=== PATIENT | male | born 1955 | race Caucasian/White ===

== ENCOUNTER → 2023-03-30 09:41 | Outpatient (REF) | payer MEDICARE, OTHER, SELFPAY ==
[2023-03-30 11:55] LABS: PT 27.3 Sec (11.4-14.6)
== END ==
LOC: HWLAB 09:41
PROVIDERS: ATTENDING PHYSICIAN Internal Medicine Cardiovascular Disease; FAMILY PHYSICIAN Family Medicine
DX: I48.21 Permanent atrial fibrillation (principal)
CPT/HCPCS: 85610

== ENCOUNTER → 2023-04-06 09:54 | Outpatient (REF) | payer MEDICARE, OTHER, SELFPAY ==
[2023-04-06 11:43] LABS: INR 2.81
== END ==
LOC: HWLAB 09:54
PROVIDERS: ATTENDING PHYSICIAN Internal Medicine Cardiovascular Disease; FAMILY PHYSICIAN Family Medicine
DX: I48.21 Permanent atrial fibrillation (principal)
CPT/HCPCS: 36415; 85610

== ENCOUNTER → 2023-04-13 10:00 | Outpatient (REF) | payer MEDICARE, OTHER, SELFPAY ==
[2023-04-13 13:05] LABS: INR 2.95; PT 31.2 Sec (11.4-14.6)
== END ==
LOC: HWLAB 10:00
PROVIDERS: ATTENDING PHYSICIAN Internal Medicine Cardiovascular Disease; FAMILY PHYSICIAN Family Medicine
DX: I48.21 Permanent atrial fibrillation (principal)
CPT/HCPCS: 36415; 85610

== ENCOUNTER → 2023-05-11 10:02 | Outpatient (REF) | payer MEDICARE, OTHER, SELFPAY ==
[2023-05-11 13:03] LABS: INR 3.98; PT 39.5 Sec (11.4-14.6)
== END ==
LOC: HWLAB 10:02
PROVIDERS: ATTENDING PHYSICIAN Internal Medicine Cardiovascular Disease; FAMILY PHYSICIAN Family Medicine
DX: I48.21 Permanent atrial fibrillation (principal)
CPT/HCPCS: 36415; 85610

== ENCOUNTER → 2023-05-18 09:02 | Outpatient (REF) | payer MEDICARE, OTHER, SELFPAY ==
[2023-05-18 12:30] LABS: INR 3.02; PT 31.7 Sec (11.4-14.6)
== END ==
LOC: HWLAB 09:02
PROVIDERS: ATTENDING PHYSICIAN Internal Medicine Cardiovascular Disease; FAMILY PHYSICIAN Family Medicine
DX: I48.21 Permanent atrial fibrillation (principal)
CPT/HCPCS: 36415; 85610

== ENCOUNTER → 2023-05-25 08:54 | Outpatient (REF) | payer MEDICARE, OTHER, SELFPAY ==
[2023-05-25 12:28] LABS: INR 2.24; PT 25.1 Sec (11.4-14.6)
== END ==
LOC: HWLAB 08:54
PROVIDERS: ATTENDING PHYSICIAN Internal Medicine Cardiovascular Disease; FAMILY PHYSICIAN Family Medicine
DX: I48.21 Permanent atrial fibrillation (principal)
CPT/HCPCS: 85610

== ENCOUNTER → 2023-06-01 10:16 | Outpatient (REF) | payer MEDICARE, OTHER, SELFPAY ==
[2023-06-01 12:49] LABS: PT 25.5 Sec (11.4-14.6)
== END ==
LOC: HWLAB 10:16
PROVIDERS: ATTENDING PHYSICIAN Internal Medicine Cardiovascular Disease; FAMILY PHYSICIAN Family Medicine
DX: I48.21 Permanent atrial fibrillation (principal)
CPT/HCPCS: 36415; 85610

== ENCOUNTER → 2023-06-08 09:33 | Outpatient (REF) | payer MEDICARE, OTHER, SELFPAY ==
[2023-06-08 13:04] LABS: INR 2.34; PT 25.9 Sec (11.4-14.6)
== END ==
LOC: HWLAB 09:33
PROVIDERS: ATTENDING PHYSICIAN Internal Medicine Cardiovascular Disease; FAMILY PHYSICIAN Family Medicine
DX: I48.21 Permanent atrial fibrillation (principal)
CPT/HCPCS: 36415; 85610

== ENCOUNTER → 2023-07-06 10:10 | Outpatient (REF) | payer MEDICARE, OTHER, SELFPAY ==
[2023-07-06 13:08] LABS: INR 2.56; PT 27.9 Sec (11.4-14.6)
== END ==
LOC: HWLAB 10:10
PROVIDERS: ATTENDING PHYSICIAN Internal Medicine Cardiovascular Disease; FAMILY PHYSICIAN Family Medicine
DX: I48.21 Permanent atrial fibrillation (principal)
CPT/HCPCS: 36415; 85610

== ENCOUNTER → 2023-08-03 09:15 | Outpatient (REF) | payer MEDICARE, OTHER, SELFPAY ==
[2023-08-03 12:37] LABS: % Basophils 0.9 % (0-2); % Eosinophils 4.2 % (0-6); % Immature Granulocytes 0.4 % (0-0.5); % Lymphocytes 19.2 % (20.5-51.1); % Monocytes 8.3 % (1.7-9.3); Absolute Basophils 0.1 10^3/uL (0-0.2); Absolute Eosinophils 0.2 10^3/uL (0-0.7); Absolute Lymphocytes 1.1 10^3/uL (1.2-3.4); Absolute Monocytes 0.5 10^3/uL (0.1-0.6); Absolute Neutrophils 3.8 10^3/uL (1.4-6.5); Hematocrit 38.6 % (39.0-52.0); Hemoglobin 13.3 g/dL (13.0-18.0); Mean Corp Hgb Conc. 34.5 g/dL (33.0-37.0); Mean Platelet Volume 10.6 fL (7.4-10.4); Nucleated Red Blood Cells % 0 % (-); Platelet Count 252 10^3/uL (130-400); Red Blood Cell Count 4.29 10^6/uL (4.70-6.10); Red Cell Dist. Width 13.5 % (11.5-14.5); White Blood Cell Count 5.7 10^3/uL (4.8-10.8)
[2023-08-03 12:44] LABS: ALT (SGPT) 17 U/L (0-50); AST (SGOT) 22 U/L (17-59); Albumin 4.3 g/dl (3.5-5.0); Blood Urea Nitrogen 27 mg/dl (9-20); Calcium 9.7 mg/dl (8.4-10.2); Carbon Dioxide 22 mmol/L (22-30); Chloride 102 mmol/L (98-107); Glucose 134 mg/dl (70-99); HDL Cholesterol 48 mg/dl; LDL Cholesterol, Calculated 71 mg/dl; Sodium 134 mmol/L (135-145); Total Bilirubin 0.6 mg/dl (0.2-1.3); Total Cholesterol 141 mg/dl (50-199); Total Protein 6.8 g/dl (6.3-8.2); Triglyceride 111 mg/dl (10-149); Very Low Density Lipoprotein 22 mg/dl (0-30); eGFR > 60.00
[2023-08-03 12:59] LABS: INR 2.75; Microalbumin/creatinine Ratio 11.1 mg/g
[2023-08-03 13:08] LABS: Alkaline Phosphatase 39 U/L (38-126)
[2023-08-03 13:16] LABS: PSA, Total - Screen 0.73 ng/ml (0.0-4.0)
[2023-08-04 13:14] LABS: Glycohemoglobin (HgbA1c) 6.4 % (4.0-5.6)
== END ==
LOC: HWLAB 09:15
PROVIDERS: ATTENDING PHYSICIAN Internal Medicine Cardiovascular Disease; FAMILY PHYSICIAN Family Medicine
DX: I48.21 Permanent atrial fibrillation (principal); I10 Essential (primary) hypertension; E11.9 Type 2 diabetes mellitus without complications; E78.6 Lipoprotein deficiency; E78.2 Mixed hyperlipidemia; Z12.5 Encounter for screening for malignant neoplasm of prostate
CPT/HCPCS: 36415; 80053; 80061; 82043; 82570; 83036; 85025; 85610; G0103

== ENCOUNTER → 2023-08-04 09:31 | Outpatient (REF) | payer MEDICARE, OTHER, SELFPAY ==
[2023-08-04 13:14] LABS: Glycohemoglobin (HgbA1c) 6.5 % (4.0-5.6)
[2023-08-04 13:32] LABS: Potassium 5.7 mmol/L (3.5-5.1)
== END ==
LOC: HWLAB 09:31
PROVIDERS: ATTENDING PHYSICIAN Internal Medicine Cardiovascular Disease; FAMILY PHYSICIAN Family Medicine
DX: E11.9 Type 2 diabetes mellitus without complications (principal); E11.59 Type 2 diabetes mellitus with other circulatory complications; E87.5 Hyperkalemia
CPT/HCPCS: 36415; 83036; 84132

== ENCOUNTER → 2023-08-16 09:37 | Outpatient (REF) | payer MEDICARE, OTHER, SELFPAY ==
[2023-08-16 11:41] LABS: Blood Urea Nitrogen 18 mg/dl (9-20); Calcium 9.6 mg/dl (8.4-10.2); Carbon Dioxide 23 mmol/L (22-30); Chloride 105 mmol/L (98-107); Glucose 139 mg/dl (70-99); Potassium 5.5 mmol/L (3.5-5.1); Sodium 139 mmol/L (135-145); eGFR > 60.00
== END ==
LOC: HWLAB 09:37
PROVIDERS: ATTENDING PHYSICIAN Internal Medicine Cardiovascular Disease; FAMILY PHYSICIAN Family Medicine
DX: E78.2 Mixed hyperlipidemia (principal)
CPT/HCPCS: 36415; 80048

== ENCOUNTER → 2023-08-31 09:45 | Outpatient (REF) | payer MEDICARE, OTHER, SELFPAY ==
[2023-08-31 12:22] LABS: INR 2.59; PT 28.1 Sec (11.4-14.6)
== END ==
LOC: HWLAB 09:45
PROVIDERS: ATTENDING PHYSICIAN Internal Medicine Cardiovascular Disease; FAMILY PHYSICIAN Family Medicine
DX: I48.21 Permanent atrial fibrillation (principal)
CPT/HCPCS: 36415; 85610

== ENCOUNTER → 2023-09-13 10:07 | Outpatient (REF) | payer MEDICARE, OTHER, SELFPAY ==
[2023-09-13 12:00] LABS: Potassium 5.6 mmol/L (3.5-5.1)
== END ==
LOC: HWLAB 10:07
PROVIDERS: ATTENDING PHYSICIAN Internal Medicine Cardiovascular Disease; FAMILY PHYSICIAN Family Medicine
DX: E11.9 Type 2 diabetes mellitus without complications (principal); E11.59 Type 2 diabetes mellitus with other circulatory complications; E87.5 Hyperkalemia
CPT/HCPCS: 36415; 84132

== ENCOUNTER → 2023-10-04 10:16 | Outpatient (REF) | payer MEDICARE, OTHER, SELFPAY ==
[2023-10-04 12:29] LABS: INR 2.32; PT 25.3 Sec (11.4-14.6)
== END ==
LOC: HWLAB 10:16
PROVIDERS: ATTENDING PHYSICIAN Internal Medicine Cardiovascular Disease; FAMILY PHYSICIAN Family Medicine
DX: I48.21 Permanent atrial fibrillation (principal)
CPT/HCPCS: 36415; 85610

== ENCOUNTER → 2023-10-17 10:04 | Outpatient (REF) | payer MEDICARE, OTHER, SELFPAY ==
[2023-10-17 12:41] LABS: Blood Urea Nitrogen 16 mg/dl (9-20); Calcium 9.3 mg/dl (8.4-10.2); Carbon Dioxide 23 mmol/L (22-30); Chloride 106 mmol/L (98-107); Glucose 151 mg/dl (70-99); Potassium 5.2 mmol/L (3.5-5.1); Sodium 137 mmol/L (135-145); eGFR > 60.00
== END ==
LOC: HWLAB 10:04
PROVIDERS: ATTENDING PHYSICIAN Internal Medicine Cardiovascular Disease; FAMILY PHYSICIAN Family Medicine
DX: E87.5 Hyperkalemia (principal)
CPT/HCPCS: 36415; 80048

== ENCOUNTER → 2023-11-03 10:04 | Outpatient (REF) | payer MEDICARE, OTHER, SELFPAY ==
[2023-11-03 12:33] LABS: Blood Urea Nitrogen 14 mg/dl (9-20); Calcium 9.4 mg/dl (8.4-10.2); Carbon Dioxide 21 mmol/L (22-30); Chloride 105 mmol/L (98-107); Glucose 134 mg/dl (70-99); Potassium 4.9 mmol/L (3.5-5.1); Sodium 141 mmol/L (135-145); eGFR > 60.00
[2023-11-03 12:34] LABS: PT 27.3 Sec (11.4-14.6)
== END ==
LOC: HWLAB 10:04
PROVIDERS: ATTENDING PHYSICIAN Internal Medicine Cardiovascular Disease; FAMILY PHYSICIAN Family Medicine; REFERRING PHYSICIAN Specialist
DX: I48.21 Permanent atrial fibrillation (principal); E87.5 Hyperkalemia
CPT/HCPCS: 36415; 80048; 85610

== ENCOUNTER → 2023-11-09 09:07 | Outpatient (REF) | payer MEDICARE, OTHER, SELFPAY | LOC: HWRCS 09:07 | PROVIDERS: ATTENDING PHYSICIAN Internal Medicine Cardiovascular Disease; FAMILY PHYSICIAN Family Medicine | DX: E78.2 Mixed hyperlipidemia (principal); I48.21 Permanent atrial fibrillation; I42.0 Dilated cardiomyopathy | CPT/HCPCS: 93306 ==

== ENCOUNTER → 2023-12-01 09:38 | Outpatient (REF) | payer MEDICARE, OTHER, SELFPAY ==
[2023-12-01 12:18] LABS: INR 2.57; PT 27.9 Sec (11.4-14.6)
== END ==
LOC: HWLAB 09:38
PROVIDERS: ATTENDING PHYSICIAN Internal Medicine Cardiovascular Disease; FAMILY PHYSICIAN Family Medicine
DX: I48.21 Permanent atrial fibrillation (principal)
CPT/HCPCS: 36415; 85610

== ENCOUNTER → 2023-12-14 09:59 | Outpatient (REF) | payer MEDICARE, OTHER, SELFPAY ==
[2023-12-14 13:00] LABS: ALT (SGPT) 21 U/L (0-50); AST (SGOT) 25 U/L (17-59); Albumin 4.2 g/dl (3.5-5.0); Alkaline Phosphatase 44 U/L (38-126); Blood Urea Nitrogen 17 mg/dl (9-20); Calcium 9.2 mg/dl (8.4-10.2); Carbon Dioxide 24 mmol/L (22-30); Chloride 104 mmol/L (98-107); Glucose 131 mg/dl (70-99); HDL Cholesterol 48 mg/dl; LDL Cholesterol, Calculated 70 mg/dl; Potassium 4.6 mmol/L (3.5-5.1); Sodium 141 mmol/L (135-145); Total Bilirubin 0.7 mg/dl (0.2-1.3); Total Cholesterol 145 mg/dl (50-199); Total Protein 6.6 g/dl (6.3-8.2); Triglyceride 137 mg/dl (10-149); Very Low Density Lipoprotein 27 mg/dl (0-30); eGFR > 60.00
[2023-12-14 13:57] LABS: Glycohemoglobin (HgbA1c) 6.1 % (4.0-5.6)
== END ==
LOC: HWLAB 09:59
PROVIDERS: ATTENDING PHYSICIAN Family Medicine; REFERRING PHYSICIAN Specialist
DX: E11.59 Type 2 diabetes mellitus with other circulatory complications (principal)
CPT/HCPCS: 36415; 80053; 80061; 83036

== ENCOUNTER → 2023-12-30 10:27 | Outpatient (REF) | payer MEDICARE, OTHER, SELFPAY ==
[2023-12-30 12:21] LABS: INR 2.01; PT 22.6 Sec (11.4-14.6)
== END ==
LOC: HWLAB 10:27
PROVIDERS: ATTENDING PHYSICIAN Internal Medicine Cardiovascular Disease; FAMILY PHYSICIAN Family Medicine
DX: I48.21 Permanent atrial fibrillation (principal)
CPT/HCPCS: 36415; 85610

== ENCOUNTER → 2024-01-31 10:34 | Outpatient (REF) | payer MEDICARE, OTHER, SELFPAY ==
[2024-01-31 12:58] LABS: INR 2.15; PT 24.1 Sec (11.4-14.6)
== END ==
LOC: HWLAB 10:34
PROVIDERS: ATTENDING PHYSICIAN Internal Medicine Cardiovascular Disease; FAMILY PHYSICIAN Family Medicine
DX: I48.21 Permanent atrial fibrillation (principal)
CPT/HCPCS: 36415; 85610

== ENCOUNTER → 2024-02-28 10:41 | Outpatient (REF) | payer MEDICARE, OTHER, SELFPAY ==
[2024-02-28 13:31] LABS: INR 2.71; PT 29.2 Sec (11.4-14.6)
== END ==
LOC: HWLAB 10:41
PROVIDERS: ATTENDING PHYSICIAN Internal Medicine Cardiovascular Disease; FAMILY PHYSICIAN Family Medicine
DX: I48.21 Permanent atrial fibrillation (principal)
CPT/HCPCS: 36415; 85610

== ENCOUNTER → 2024-04-03 09:38 | Outpatient (REF) | payer MEDICARE, OTHER, SELFPAY ==
[2024-04-03 14:58] LABS: PT 21.1 Sec (11.4-14.6)
== END ==
LOC: HWLAB 09:38
PROVIDERS: ATTENDING PHYSICIAN Internal Medicine Cardiovascular Disease; FAMILY PHYSICIAN Family Medicine
DX: I48.21 Permanent atrial fibrillation (principal)
CPT/HCPCS: 36415; 85610

== ENCOUNTER → 2024-04-12 09:57 | Outpatient (REF) | payer MEDICARE, OTHER, SELFPAY ==
[2024-04-12 13:25] LABS: INR 1.65
== END ==
LOC: HWLAB 09:57
PROVIDERS: ATTENDING PHYSICIAN Internal Medicine Cardiovascular Disease; FAMILY PHYSICIAN Family Medicine
DX: I48.21 Permanent atrial fibrillation (principal)
CPT/HCPCS: 36415; 85610

== ENCOUNTER → 2024-04-20 09:17 | Outpatient (REF) | payer MEDICARE, OTHER, SELFPAY ==
[2024-04-20 12:13] LABS: INR 2.49; PT 26.9 Sec (11.4-14.6)
== END ==
LOC: HWLAB 09:17
PROVIDERS: ATTENDING PHYSICIAN Internal Medicine Cardiovascular Disease; FAMILY PHYSICIAN Family Medicine
DX: I48.21 Permanent atrial fibrillation (principal)
CPT/HCPCS: 36415; 85610

== ENCOUNTER → 2024-04-27 09:27 | Outpatient (REF) | payer MEDICARE, OTHER, SELFPAY ==
[2024-04-27 12:11] LABS: INR 2.68; PT 28.5 Sec (11.4-14.6)
== END ==
LOC: HWLAB 09:27
PROVIDERS: ATTENDING PHYSICIAN Internal Medicine Cardiovascular Disease; FAMILY PHYSICIAN Family Medicine
DX: I48.21 Permanent atrial fibrillation (principal)
CPT/HCPCS: 36415; 85610

== ENCOUNTER → 2024-05-04 10:02 | Outpatient (REF) | payer MEDICARE, OTHER, SELFPAY ==
[2024-05-04 11:42] LABS: INR 2.62
== END ==
LOC: HWLAB 10:02
PROVIDERS: ATTENDING PHYSICIAN Internal Medicine Cardiovascular Disease; FAMILY PHYSICIAN Family Medicine
DX: I48.21 Permanent atrial fibrillation (principal)
CPT/HCPCS: 36415; 85610

== ENCOUNTER → 2024-05-11 09:53 | Outpatient (REF) | payer MEDICARE, OTHER, SELFPAY ==
[2024-05-11 13:10] LABS: INR 2.56; PT 27.5 Sec (11.4-14.6)
== END ==
LOC: HWLAB 09:53
PROVIDERS: ATTENDING PHYSICIAN Internal Medicine Cardiovascular Disease; FAMILY PHYSICIAN Family Medicine
DX: I48.21 Permanent atrial fibrillation (principal)
CPT/HCPCS: 36415; 85610

== ENCOUNTER → 2024-06-08 10:56 | Outpatient (REF) | payer MEDICARE, OTHER, SELFPAY | LOC: HWLAB 10:56 | PROVIDERS: ATTENDING PHYSICIAN Internal Medicine Cardiovascular Disease; FAMILY PHYSICIAN Family Medicine | DX: I48.21 Permanent atrial fibrillation (principal) | CPT/HCPCS: 36415; 85610 ==

== ENCOUNTER → 2024-07-06 09:28 | Outpatient (REF) | payer MEDICARE, OTHER, SELFPAY ==
[2024-07-06 12:34] LABS: INR 2.18; PT 24.4 Sec (11.4-14.6)
== END ==
LOC: HWLAB 09:28
PROVIDERS: ATTENDING PHYSICIAN Internal Medicine Cardiovascular Disease; FAMILY PHYSICIAN Family Medicine
DX: I48.21 Permanent atrial fibrillation (principal)
CPT/HCPCS: 36415; 85610

== ENCOUNTER → 2024-08-03 10:00 | Outpatient (REF) | payer MEDICARE, OTHER, SELFPAY ==
[2024-08-03 11:45] LABS: INR 2.06; PT 23.4 Sec (11.4-14.6)
== END ==
LOC: HWLAB 10:00
PROVIDERS: ATTENDING PHYSICIAN Internal Medicine Cardiovascular Disease; FAMILY PHYSICIAN Family Medicine
DX: I48.21 Permanent atrial fibrillation (principal)
CPT/HCPCS: 36415; 85610

== ENCOUNTER → 2024-09-05 09:25 | Outpatient (REF) | payer MEDICARE, OTHER, SELFPAY ==
[2024-09-05 13:07] LABS: INR 1.63; PT 19.8 Sec (11.4-14.6)
== END ==
LOC: HWLAB 09:25
PROVIDERS: ATTENDING PHYSICIAN Internal Medicine Cardiovascular Disease; FAMILY PHYSICIAN Family Medicine
DX: I48.21 Permanent atrial fibrillation (principal)
CPT/HCPCS: 36415; 85610

== ENCOUNTER → 2024-09-10 12:35 | Outpatient (REF) | payer MEDICARE, OTHER, SELFPAY ==
[2024-09-10 16:33] LABS: PT 25.0 Sec (11.4-14.6)
[2024-09-10 16:34] LABS: INR 2.26
== END ==
LOC: HWLAB 12:35
PROVIDERS: ATTENDING PHYSICIAN Internal Medicine Cardiovascular Disease; FAMILY PHYSICIAN Family Medicine
DX: I48.21 Permanent atrial fibrillation (principal)
CPT/HCPCS: 36415; 85610

== ENCOUNTER 2024-10-08 18:02 | Emergency (ER) | payer MEDICARE, OTHER, SELFPAY ==
[2024-10-08 18:03] VITALS: BP 167/106
[2024-10-08 18:33] LABS: Hematocrit 39.2 % (39.0-52.0); Hemoglobin 13.7 g/dL (13.0-18.0); Mean Corp Hgb Conc. 34.9 g/dL (33.0-37.0); Mean Corpuscular Volume 90.5 fL (80.0-94.0); Nucleated Red Blood Cells % 0 % (-); Platelet Count 188 10^3/uL (130-400); Red Cell Dist. Width 13.2 % (11.5-14.5)
[2024-10-08 18:51] LABS: ALT (SGPT) 20 U/L (0-50); AST (SGOT) 23 U/L (17-59); Albumin 4.7 g/dl (3.5-5.0); Alkaline Phosphatase 61 U/L (38-126); Blood Urea Nitrogen 18 mg/dl (9-20); Calcium 9.1 mg/dl (8.4-10.2); Carbon Dioxide 24 mmol/L (22-30); Chloride 102 mmol/L (98-107); Glucose 96 mg/dl (70-99); Potassium 4.5 mmol/L (3.5-5.1); Sodium 135 mmol/L (135-145); Total Protein 7.4 g/dl (6.3-8.2); eGFR > 60.00
[2024-10-08 20:00] VITALS: BP 176/120
--- NOTE | 2024-10-08 23:09 | ED.GENMED ---
History of Present Illness
<Yoana Carey MD, Resident - Last Filed: 10/09/24 00:14>
General
Chief Complaint: Abnormal Lab Value
Source: patient and significant other
Time Seen by Provider: 10/08/24 22:54
Nursing documentation reviewed up to this point in time: agreed with
History of Present Illness
History of Present Illness:
69-year-old male with past medical history of A-fib, hypertension, NIDDM, hyperlipidemia, bilateral lower extremity edema comes to the ED following abnormal lab value earlier today. His sodium was found to be 113 and he was told by his primary care
physician to come to the ED for further testing. He reports no symptoms, has no shortness of breath, confusion, fatigue, headaches, chest pain. His blood pressure was found to be elevated while in the waiting room. He was around 176/120, but
patient states that the blood pressure cuff possibly too tight. On remeasure today in the room, it was around 160/97. Overall the patient is feeling well and has no acute concerns at this moment.
Past History
<Yoana Carey MD, Resident - Last Filed: 10/09/24 00:14>
Past History
ED Past Medical History: Arrthythmia (Atrial fib), HTN, Hypercholesterolemia and NIDDM
ED Past Surgical History: Cardiac (Stent)
Review of Systems
<Yoana Carey MD, Resident - Last Filed: 10/09/24 00:14>
Review of Systems
Allergies reviewed?: Yes
All Other Systems: ROS reviewed and negative except as documented in HPI and ROS
Constitutional: Reports no symptoms
EENT: Reports no symptoms
Respiratory: Reports no symptoms
Cardiac: Reports no symptoms
ABD/GI: Reports no symptoms
: Reports no symptoms
Musculoskeletal: Reports no symptoms
Skin: Reports no symptoms
Neurological: Reports no symptoms
Endocrine: Reports no symptoms
Hematologic/Lymphatic: Reports no symptoms
Psychiatric: Reports no symptoms
Phy Exam
<Yoana Carey MD, Resident - Last Filed: 10/09/24 00:14>
General Physical Exam
General Presentation: well appearing and no apparent distress
General Skin: warm and dry
General Habitus: normal
General Mental: alert
General Hydration: appears well hydrated
Cardiovascular Exam
Cardiovascular Exam: irregularly irregular
Gastrointestinal Exam
Gastrointestinal Exam: normal bowel sounds, non tender, soft and non distended
Musculoskeletal Exam
Musculoskeletal Exam: edema (trace bilateral lower extremity edema)
Skin Exam
Skin Exam: normal color and warm/dry
Course
<Yoana Carey MD, Resident - Last Filed: 10/09/24 00:14>
Orders/Labs/Results
Orders:
Orders
10/08/24 18:14
Complete Blood Count/With Diff Urgent
Comprehensive Metabolic Panel Urgent
Abnormal Lab Results
10/08/24
18:14
RBC 4.33 L 10^6/uL
(4.70-6.10)
MCH 31.6 H pg
(27.0-31.0)
Absolute Monos (auto) 0.9 H 10^3/uL
(0.1-0.6)
Monocytes % 10.2 H %
(1.7-9.3)
10/08/24 18:14
10/08/24 18:14
Vital Signs
Initial and Last Documented VS:
Initial Vital Signs
Temp Pulse Resp BP Pulse Ox
99.1 F 86 16 167/106 97
10/08/24 18:03 10/08/24 18:03 10/08/24 18:03 10/08/24 18:03 10/08/24 18:03
Last Documented Vital Signs
Temp Pulse Resp BP Pulse Ox
99.1 F 82 14 160/97 97
10/08/24 18:03 10/08/24 23:15 10/08/24 23:15 10/08/24 23:23 10/08/24 23:15
<Nataliia Woodall MD - Last Filed: 10/09/24 00:14>
Orders/Labs/Results
Orders:
Orders
10/08/24 18:14
Complete Blood Count/With Diff Urgent
Comprehensive Metabolic Panel Urgent
Abnormal Lab Results
10/08/24
18:14
RBC 4.33 L 10^6/uL
(4.70-6.10)
MCH 31.6 H pg
(27.0-31.0)
Absolute Monos (auto) 0.9 H 10^3/uL
(0.1-0.6)
Monocytes % 10.2 H %
(1.7-9.3)
10/08/24 18:14
10/08/24 18:14
Vital Signs
Initial and Last Documented VS:
Initial Vital Signs
Temp Pulse Resp BP Pulse Ox
99.1 F 86 16 167/106 97
10/08/24 18:03 10/08/24 18:03 10/08/24 18:03 10/08/24 18:03 10/08/24 18:03
Last Documented Vital Signs
Temp Pulse Resp BP Pulse Ox
99.1 F 82 14 160/97 97
10/08/24 18:03 10/08/24 23:15 10/08/24 23:15 10/08/24 23:23 10/08/24 23:15
<Yoana Carey MD, Resident - Last Filed: 10/09/24 00:14>
MDM/Problems Addressed
Differential Diagnosis Includes:
Hypertension, Lab draw error
MDM/Problems Addressed:
69-year-old male with past medical history of A-fib, hypertension, NIDDM, hyperlipidemia, bilateral lower extremity edema comes to the ED following abnormal lab value earlier today. His sodium was found to be 113 and he was told by his primary care
physician to come to the ED for further testing
CMP showed normal sodium levels (135)
No abnormalities seen on CBC
Earlier sodium of 113 most likely due to a lab error
BP in waiting room found to be 176/120 but recheck in the room was 160/97
Patient in stable condition and should be okay to be discharged. Needs to follow up with primary regarding better management of Hypertension and bilateral pedal edema.
Chronic conditions affecting care: HTN and Arrhythmia
<Yoana Carey MD, Resident - Last Filed: 10/09/24 00:14>
*Pulse Oximetry
SaO2: 100
Oxygen Mode of Delivery: Room air
Patient hypoxic: no
*Critical Care Note
Total Time (30-74mins, 75-104mins- exclusive of procedures): Not Applicable
ED Attending Note
<Yoana Carey MD, Resident - Last Filed: 10/09/24 00:14>
-
Portions of this chart may have been created with voice recognition software.� Occasional wrong word or��sound alike� substitutions may have occurred due to the inherent limitations of voice recognition software.
<Nataliia Woodall MD - Last Filed: 10/09/24 00:14>
ED Attending Note
Patient seen and examined by attending physician: Yes
I performed a history and physical exam of patient and discussed management with resident, I reviewed resident's note and agree with documented findings and plan of care.: Yes
ED Attending Note:
69-year-old male sent in because of reported hyponatremia on outpatient labs routine. Patient is asymptomatic. Our lab values here are unremarkable. Patient was reporting elevated blood pressure however blood pressure here, while elevated, not
dangerously so. Discussed with patient importance of follow-up and reasons return to the ER. Patient is awake alert pleasant no respiratory distress speaks in full sentences easily. Family member at bedside, questions answered.
Discharge Plan
Departure
Patient Disposition: Home (Routine Discharge)
Date of Disposition: 10/09/24
Time of Disposition: 00:13
Patient with high blood pressure during this ER visit?: Yes
Condition: Good
Covid-19: Not Applicable
Discharge Problem:
Hypertension
Instructions: BLOOD PRESSURE
Prescriptions:
No Action
metformin 500 MG tablet
1,000 mg PO DAILY
ascorbic acid (vitamin C) [Vitamin C] 500 MG tablet
500 mg PO DAILY
lisinopril 10 MG tablet
20 mg PO DAILY
diltiazem HCl 120 MG capsule,extended release 24hr
120 mg PO DAILY
folic acid 1 MG tablet
1 mg PO DAILY
fenofibrate nanocrystallized 145 MG tablet
145 mg PO DAILY
apixaban [Eliquis] 5 MG tablet
5 mg PO BID
atorvastatin 40 MG tablet
40 mg PO QPM Qty: 90 3RF
metoprolol succinate 100 MG tablet extended release 24 hr
100 mg PO QPM Qty: 90 3RF
clopidogrel 75 MG tablet
75 mg PO DAILY Qty: 90 3RF
spironolactone 25 MG tablet
25 mg PO DAILY Qty: 90 3RF
pantoprazole 40 MG tablet,delayed release (DR/EC)
40 mg PO DAILY Qty: 60 3RF
nitroglycerin 0.4 MG tablet, sublingual
0.4 mg sublingual [id number] PRN (Reason: chest pain) Qty: 25 3RF
acetaminophen [Tylenol] 325 MG capsule
650 mg PO BID
Activity Restrictions/Additional Instructions:
Your labwork done in the ED today showed no abnormalities, earlier sodium levels were most likely in error.
Follow up with your PCP as discussed regarding your hypertension and trace pedal edema.
If you develop any worsening symptoms, please retun to the ED
Discharge Date and Time
Print Language: LITHUANIAN
[2024-10-08 23:23] VITALS: BP 160/97
[2024-10-08 23:29] VITALS: BP 152/99
[2024-10-09] VITALS: BP 142/95
== END 2024-10-09 00:55 | disposition home or self-care (01) ==
LOC: EMR 18:02
PROVIDERS: Emergency Medicine; EMERGENCY PHYSICIAN Emergency Medicine; FAMILY PHYSICIAN Family Medicine
DX: I10 Essential (primary) hypertension (principal); E78.00 Pure hypercholesterolemia, unspecified; E11.9 Type 2 diabetes mellitus without complications; I48.91 Unspecified atrial fibrillation; Z95.5 Presence of coronary angioplasty implant and graft
CPT/HCPCS: 99283; 36415; 80053; 80061; 82043; 82570; 83036; 85025; 85610; G0103

== ENCOUNTER → 2024-11-06 09:57 | Outpatient (REF) | payer MEDICARE, OTHER, SELFPAY ==
[2024-11-06 12:50] LABS: INR 1.96; PT 22.5 Sec (11.4-14.6)
== END ==
LOC: HWLAB 09:57
PROVIDERS: ATTENDING PHYSICIAN Internal Medicine Cardiovascular Disease; FAMILY PHYSICIAN Family Medicine
DX: I48.21 Permanent atrial fibrillation (principal)
CPT/HCPCS: 36415; 85610

== ENCOUNTER → 2024-11-12 07:23 | Outpatient (REF) | payer MEDICARE, OTHER, SELFPAY ==
[2024-11-12 10:46] LABS: INR 2.44; PT 26.5 Sec (11.4-14.6)
== END ==
LOC: HWLAB 07:23
PROVIDERS: ATTENDING PHYSICIAN Internal Medicine Cardiovascular Disease; FAMILY PHYSICIAN Family Medicine
DX: I48.21 Permanent atrial fibrillation (principal)
CPT/HCPCS: 36415; 85610

== ENCOUNTER → 2024-12-11 10:24 | Outpatient (REF) | payer MEDICARE, OTHER, SELFPAY ==
[2024-12-11 12:44] LABS: INR 2.83; PT 29.7 Sec (11.4-14.6)
== END ==
LOC: HWLAB 10:24
PROVIDERS: ATTENDING PHYSICIAN Internal Medicine Cardiovascular Disease; FAMILY PHYSICIAN Family Medicine
DX: I48.21 Permanent atrial fibrillation (principal)
CPT/HCPCS: 36415; 85610

== ENCOUNTER → 2025-01-03 09:02 | Outpatient (REF) | payer MEDICARE, OTHER, SELFPAY ==
[2025-01-03 12:59] LABS: ALT (SGPT) 21 U/L (0-50); AST (SGOT) 20 U/L (17-59); Albumin 4.4 g/dl (3.5-5.0); Alkaline Phosphatase 59 U/L (38-126); Blood Urea Nitrogen 13 mg/dl (9-20); Calcium 9.1 mg/dl (8.4-10.2); Carbon Dioxide 27 mmol/L (22-30); Chloride 104 mmol/L (98-107); Glucose 121 mg/dl (70-99); HDL Cholesterol 50 mg/dl; LDL Cholesterol, Calculated 66 mg/dl; Potassium 4.9 mmol/L (3.5-5.1); Sodium 138 mmol/L (135-145); Total Protein 7.0 g/dl (6.3-8.2); Very Low Density Lipoprotein 24 mg/dl (0-30); eGFR > 60.00
[2025-01-03 13:10] LABS: Glycohemoglobin (HgbA1c) 5.8 % (4.0-5.9)
== END ==
LOC: HWLAB 09:02
PROVIDERS: ATTENDING PHYSICIAN Family Medicine
DX: E78.2 Mixed hyperlipidemia (principal); E11.9 Type 2 diabetes mellitus without complications
CPT/HCPCS: 36415; 80053; 80061; 83036

== ENCOUNTER → 2025-01-08 10:14 | Outpatient (REF) | payer MEDICARE, OTHER, SELFPAY ==
[2025-01-08 12:23] LABS: INR 3.08; PT 31.6 Sec (11.4-14.6)
== END ==
LOC: HWLAB 10:14
PROVIDERS: ATTENDING PHYSICIAN Internal Medicine Cardiovascular Disease; FAMILY PHYSICIAN Family Medicine
DX: I48.21 Permanent atrial fibrillation (principal)
CPT/HCPCS: 36415; 85610

== ENCOUNTER → 2025-02-07 09:07 | Outpatient (REF) | payer MEDICARE, OTHER, SELFPAY ==
[2025-02-07 10:33] LABS: INR 2.12; PT 23.3 Sec (11.4-14.6)
== END ==
LOC: REG 09:07
PROVIDERS: ATTENDING PHYSICIAN Internal Medicine Cardiovascular Disease; FAMILY PHYSICIAN Family Medicine
DX: I48.21 Permanent atrial fibrillation (principal)
CPT/HCPCS: 36415; 85610